=== PATIENT | female | born 1980 | race Caucasian/White ===

== ENCOUNTER 2018-12-04 05:32 | Emergency (ER) | payer OTHER ==
--- NOTE | 2018-12-04 06:00 | ED Physician Chart ---
ED Chief Complaint/HPI - Patient Information Date Seen:: 12/04/18 Time Seen:: 05:55 Chief Complaint:: tca llt knee pain Allergies:: Allergies Allergy/AdvReac Type Severity Reaction Status Date / Time No Known Allergies Allergy Verified 12/04/18 05:42 Vitals:: Vital Signs - 8 hr 12/04/18 05:35 Temp 97.7 F HR 82 RR 16 BP 128/89 O2 Sat % 97 ED Review of Systems - Review of Systems Skin: Skin lesions, Other (lt knee abrasion s/yca) Head: No headache Eyes: No loss of vision ENT: No earache Neck: No neck pain Pulmonary: No SOB GI: No vomiting Musculoskeletal: No bone or joint pain Endocrine: No polyuria Psychiatric: No depression Hematopoietic: Bruising Allergic/Immuno: No urticaria Neurological: No syncope Family Medical History - Family Member Mother History Unknown: Yes ED Septic Shock - . Is Septic Shock (SBP<90, OR Lactate>4 mmol\L) present?: No - <6hrs of presentation: Vital Signs: Vital Signs - 8 hr 12/04/18 05:35 Temp 97.7 F HR 82 RR 16 BP 128/89 O2 Sat % 97 ED Reassessment (Disposition) - Reassessment Reassessment:: tca lt knee abrasion wrist sprain - Patient Disposition Discharge/Transfer:: Home
--- NOTE | 2018-12-04 09:19 | Diagnostic Imaging Report ---
Exam: Right wrist joint. HISTORY: Trauma. Findings: Multiple views of the right wrist joint reviewed. The study demonstrates no evidence of fracture or dislocation. The radiocarpal joint is intact. The carpal bones are normal. IMPRESSION: Normal examination right wrist joint.
--- NOTE | 2018-12-04 09:20 | Diagnostic Imaging Report ---
EXAM: Left knee joint HISTORY: Pain COMPARISON: None FINDINGS: Multiple views of the left knee joint reviewed. The study demonstrates no evidence of fracture or dislocation. There is no evidence for joint effusion. The patella is intact. If clinically indicated ligamentous or meniscal injury is considered MRI examination might be helpful. IMPRESSION: Normal examination left knee joint.
== END 2018-12-04 06:40 | disposition home or self-care (01) ==
LOC: ER 05:32
DX: S63.501A Unspecified sprain of right wrist, initial encounter (principal); S80.212A Abrasion, left knee, initial encounter; V89.2XXA Person injured in unspecified motor-vehicle accident, traffic, initial encounter; Y93.89 Activity, other specified; Y92.410 Unspecified street and highway as the place of occurrence of the external cause; Y99.8 Other external cause status
CPT/HCPCS: 73110-TC-LT; 73562-TC-LT; Z7502